=== PATIENT | female | born 1945 | race Caucasian/White ===

== ENCOUNTER 2022-10-08 08:45 | Day surgery (SDC) | payer OTHER ==
[~2022-10-08] VITALS: Ht 177.8 cm; Wt 126.0 kg
[2022-10-08] MEDS ORDERED: Vitamin D1000 UNI1 PO (08:55)
--- NOTE | 2022-10-08 09:26 | NUR ---
Patient up to Ambulate independently. Gait steady. Patient states colon prep results clear. History, Chart, Medications and Allergies reviewed before start of procedure.Patient States Post-Procedure ride home has been arranged. Patient confirms NPO status and agrees with scheduled surgery. Pre-Op teaching done. Pt verbalizes understanding.
--- NOTE | 2022-10-08 09:49 | NUR ---
10/08/22 [address] EATON; SEE ANESTHESIA RECORDS.
--- NOTE | 2022-10-08 11:33 | NUR ---
Patient up to Ambulate independently. Gait steady. Discharge instructions reviewed with patient. Patient verbalizes understanding. Copy given to patient to take home. Patient States Post-Procedure ride home has been arranged. Discharged via wheelchair to private car for ride home. DR ALAS REPORTED TO EXPECT PT TO HAVE A SMALL AMT OF BLEEDING.
== END 2022-10-08 11:33 | disposition home or self-care (01) ==
LOC: ORSCMMR 08:45 → ORD 09:30 → ORSCMMR 11:33
PROVIDERS: Internal Medicine Gastroenterology
PROC: 3E0H8KZ Introduction of Other Diagnostic Substance into Lower GI, Via Natural or Artificial Opening Endoscopic (ICD-10-PCS; principal; 2022-10-08 09:30)
PROC: 0DBP8ZX Excision of Rectum, Via Natural or Artificial Opening Endoscopic, Diagnostic (ICD-10-PCS; principal; 2022-10-08 09:30)
PROC: 0DBM8ZX Excision of Descending Colon, Via Natural or Artificial Opening Endoscopic, Diagnostic (ICD-10-PCS; principal; 2022-10-08 09:30)
PROC: 0DBN8ZX Excision of Sigmoid Colon, Via Natural or Artificial Opening Endoscopic, Diagnostic (ICD-10-PCS; principal; 2022-10-08 09:30)
PROC: 0DBL8ZX Excision of Transverse Colon, Via Natural or Artificial Opening Endoscopic, Diagnostic (ICD-10-PCS; principal; 2022-10-08 09:30)
DX: Z12.11 Encounter for screening for malignant neoplasm of colon (principal); D12.4 Benign neoplasm of descending colon; D12.3 Benign neoplasm of transverse colon; D12.8 Benign neoplasm of rectum; K63.5 Polyp of colon; K55.20 Angiodysplasia of colon without hemorrhage; K57.30 Diverticulosis of large intestine without perforation or abscess without bleeding; J45.909 Unspecified asthma, uncomplicated; K21.9 Gastro-esophageal reflux disease without esophagitis; G47.33 Obstructive sleep apnea (adult) (pediatric); Z87.891 Personal history of nicotine dependence; E66.9 Obesity, unspecified; Z68.39 Body mass index [BMI] 39.0-39.9, adult
CPT/HCPCS: 88305; J2370; J2405; J2704; J7120

== ENCOUNTER 2023-05-10 07:21 | Day surgery (SDC) | payer OTHER ==
[~2023-05-10] VITALS: Ht 177.8 cm; Wt 128.6 kg
[~2023-05-10 07:21] MED LIST: Vitamin D1000 UNI1 PO
[2023-05-10 09:43] VITALS: BP 110/67
== END 2023-05-10 10:06 | disposition home or self-care (01) ==
LOC: ORSCSDS 07:21
PROVIDERS: Internal Medicine Gastroenterology
PROC: 0DBM8ZX Excision of Descending Colon, Via Natural or Artificial Opening Endoscopic, Diagnostic (ICD-10-PCS; principal; 2023-05-10 08:45)
PROC: 0DBK8ZX Excision of Ascending Colon, Via Natural or Artificial Opening Endoscopic, Diagnostic (ICD-10-PCS; principal; 2023-05-10 08:45)
PROC: 0DBL8ZX Excision of Transverse Colon, Via Natural or Artificial Opening Endoscopic, Diagnostic (ICD-10-PCS; principal; 2023-05-10 08:45)
PROC: 0DBN8ZX Excision of Sigmoid Colon, Via Natural or Artificial Opening Endoscopic, Diagnostic (ICD-10-PCS; principal; 2023-05-10 08:45)
DX: K63.5 Polyp of colon (principal); D12.5 Benign neoplasm of sigmoid colon; D12.4 Benign neoplasm of descending colon; D12.3 Benign neoplasm of transverse colon; D12.2 Benign neoplasm of ascending colon; E66.01 Morbid (severe) obesity due to excess calories; Z68.41 Body mass index [BMI] 40.0-44.9, adult
CPT/HCPCS: 88305; J2704